=== PATIENT | female | born 1960 | race Caucasian/White ===

== ENCOUNTER 2022-11-23 08:16 | Day surgery (SDC) | payer BC ==
[2022-11-21 13:56] VITALS: BMI 21.9
[~2022-11-23 08:16] MED LIST: LACTATED RINGERS 1,000 ML IV SCH
[2022-11-23 08:56] VITALS: RESP 18; TEMP 97.4
[2022-11-23] MEDS ORDERED: LACTATED RINGERS 1,000 ML IV ONE (08:56)
[2022-11-23] MEDS ORDERED: PROPOFOL 10 MG/ML 20 ML VIAL IV ONE (09:42)
[2022-11-23] MEDS ORDERED: LIDOCAINE 2% INJ 20 MG/ML (2 ML VIAL) ONE (09:42)
--- NOTE | 2022-11-23 09:49 | P.PCN ---
Date of Procedure: 11/23/22 Procedure(s) Performed: BRIEF HISTORY: Patient is a 62-year-old, pleasant, white female scheduled for an upper endoscopy as a part of evaluation of long-standing history of GERD. Currently on Prevacid 30 mg daily and doing well. She is scheduled for an upper endoscopy were complicated reflux disease.. PROCEDURE PERFORMED: Esophagogastroduodenoscopy with biopsy PREOPERATIVE DIAGNOSIS: Long-standing history of GERD. IV sedation per anesthesia. PROCEDURE: After informed consent was obtained, the patient was brought into the endoscopy unit. IV sedation was administered by Anesthesia under continuous monitoring. Initially the Olympus GIF-140 video endoscope was inserted into the mouth. Esophagus intubated without any difficulty. It was gradually advanced into the stomach and duodenum and carefully examined. The bulb and the second part of the duodenum appeared normal. The scope at this time was withdrawn to the stomach, adequately insufflated with air, and upon careful examination, mucosa of the antrum and a 1 cm semi-was a nodule identified which was biopsied. Mucosa of the, body, cardia and the fundus appeared normal. The scope was then withdrawn into the esophagus. The GE junction was located at 39 cm from the incisors. The esophagus appeared normal. There were no erosions or ulcerations seen and the patient tolerated the procedure well. IMPRESSION: 1. 1 cm submucosal gastric nodule in the antrum of the stomach status post biopsy. 2. Normal-appearing esophagus with no evidence of esophagitis or Bergeron's. RECOMMENDATIONS: The findings of this examination were discussed with the patient is a family. She was advised to follow with the biopsy results. Continue with Prevacid 30 mg daily and follow antireflux measures..
[2022-11-23 10:11] VITALS: BP 112/74; PULSE 56
== END 2022-11-23 10:36 | disposition home or self-care (01) ==
LOC: ORWHC2ENDO 08:16
PROVIDERS: ATTEND Internal Medicine Gastroenterology
DX: K31.7 Polyp of stomach and duodenum (principal); K21.9 Gastro-esophageal reflux disease without esophagitis; Z98.890 Other specified postprocedural states; Z79.899 Other long term (current) drug therapy; Z88.0 Allergy status to penicillin
CPT/HCPCS: 88305; 43239; J2704; J2001

== ENCOUNTER → 2024-02-14 | Outpatient (CLI) | payer BC, OTHER ==
[2024-02-14] MEDS: SODIUM CHLORIDE 0.9% 500 ML 500 ML in EMPTY BAG 1 BAG IV PRN (14:20)
[2024-02-14] MEDS: ZOLEDRONIC ACID 5 MG in SODIUM CHLORIDE 0.9% 100 ML IV NR (14:20)
[2024-02-14 14:35] VITALS: BP 133/82; PULSE 57; RESP 14; TEMP 98.1
== END ==
LOC: PROCWHC3 13:27
PROVIDERS: ATTEND Family Medicine
DX: M81.0 Age-related osteoporosis without current pathological fracture (principal); Z88.0 Allergy status to penicillin
CPT/HCPCS: 96365; J3489